=== PATIENT | female | born 1975 | race American Indian/Alaskan Native ===

== ENCOUNTER 2017-07-13 17:28 | Inpatient (IN) | payer MEDICAID, OTHER ==
[~2017-07-13 17:28] MED LIST: Fluarix Quad 2017-2018(36 MOS+ IM ONE
[2017-07-13] MEDS ORDERED: BRETHINE IVP PRN (18:20)
[2017-07-13] MEDS ORDERED: ZOFRAN IV PRN (18:20)
[2017-07-13] MEDS ORDERED: XYLOCAINE 2% INFILTRATI ONE (18:20)
[2017-07-13] MEDS ORDERED: NARCAN 0.4 MG/1 ML IV PRN (18:20)
[2017-07-13] MEDS ORDERED: PHENERGAN PO PRN (18:20)
[2017-07-13] MEDS ORDERED: ePHEDrine SULFATE IV PRN (18:20)
[2017-07-13] MEDS ORDERED: BRETHINE SUB-Q PRN (18:20)
[2017-07-13] MEDS ORDERED: PITOCin/NS 20 UNIT/1000ML DRIP 20 UNITS/1,000 ML BAG IV SCH (19:00)
[2017-07-13] MEDS ORDERED: CYTOTEC VAGINAL SCH (19:00)
[2017-07-13] MEDS ORDERED: PITOCin/NS 30 UNIT/500ML 30 UNITS/500 ML BAG IV SCH (19:00)
[2017-07-13 21:04] LABS: Hematocrit 35.6 % (30.3-42.9); Mean Corpuscular HGB Conc 34 % (30-34); Mean Corpuscular Hemoglobin 30 pg (28-32); Mean Corpuscular Volume 88 fl (79-97); Platelet Count 303 K/mm3 (140-440); Red Blood Count 4.05 M/mm3 (3.65-5.03); White Blood Count 12.5 K/mm3 (4.5-11.0)
--- NOTE | 2017-07-13 21:18 | Ultrasound Report ---
FINAL REPORT PROCEDURE: US OB LIMITED TECHNIQUE: Real-time limited sonographic examination was performed for evaluation of size, position, heartbeat, fluid volume for each fetus with image documentation (1 or more fetuses). CPT 32543 HISTORY: viablity COMPARISON: 07/12/2017 FINDINGS: There is a single intrauterine gestation, in cephalic presentation. There is oligohydramnios. No cardiac activity is detected. IMPRESSION: No cardiac activity is detected
[2017-07-13 21:29] LABS: Uric Acid 7.8 mg/dL (3.5-7.6)
[2017-07-13] MEDS: LACTATED RINGERS 1,000 ML IV SCH (21:29)
[2017-07-13] MEDS: CYTOTEC VG SCH (21:32)
[2017-07-13] MEDS ORDERED: MINERAL OIL PO PRN (22:00)
[2017-07-14] MEDS: STADOL IV PRN ×2 (00:31→13:36)
[2017-07-14] MEDS: LACTATED RINGERS 1,000 ML IV SCH (02:44)
[2017-07-14] MEDS: CYTOTEC VG SCH (02:45)
[2017-07-14 03:21] LABS: Bilirubin,Urine NEG (Negative); Blood,Urine SM (Negative); Ketones,Urine NEG (Negative); Leukocyte Esterase,Urine NEG (Negative); Mucus,Urine FEW /HPF; Nitrite,Urine NEG (Negative); Protein,Urine >500 mg/dL (Negative); Urobilinogen,Urine < 2.0 mg/dL (<2.0)
[2017-07-14] MEDS: SUBLIMAZE IV PRN ×3 (05:14→12:50)
[2017-07-14] MEDS ORDERED: CYTOTEC ONE (07:32)
[2017-07-14] MEDS ORDERED: CYTOTEC PR ONE (08:00)
[2017-07-14] MEDS ORDERED: APRESOLINE IV PRN ×2 (11:45→12:34)
--- NOTE | 2017-07-14 12:40 | Progress Note ---
Assessment and Plan - Patient Problems (1) demise Current Visit: Yes Status: Acute Plan to address problem: continue with induction (2) Chronic hypertension affecting Current Visit: Yes Status: Acute Plan to address problem: treat chronic hypertension with IV anti-hypertensive therapy (3) Chronic renal insufficiency Current Visit: Yes Status: Acute Qualifiers: Chronic kidney disease stage: C Subjective - Subjective Date of service: 07/14/17 Principal diagnosis: IUFD; chronic renal insufficiency; poorly controlled hypertension Interval history: 41y/o @ 24+3 weeks being induced for an IUFD. The patient has received cytotec for the induction agent. Blood pressures are elevated. Will administer IV anti-hypertensives. Patient reports: contractions Objective - Vital Signs Vital Signs: Vital Signs - 12hr 07/14/17 07/14/17 07/14/17 01:04 01:11 02:11 Temperature Pulse Rate 75 77 72 Respiratory Rate Blood Pressure 144/82 149/88 164/77 Blood Pressure [Right] 07/14/17 07/14/17 07/14/17 02:55 02:56 05:14 Temperature 99.0 F Pulse Rate 74 74 Respiratory 18 18 Rate Blood Pressure 142/92 Blood Pressure 142/92 [Right] 07/14/17 07/14/17 07/14/17 05:18 05:22 05:44 Temperature 99.2 F Pulse Rate 83 83 Respiratory 20 20 Rate Blood Pressure 157/75 Blood Pressure 157/75 [Right] 07/14/17 07/14/17 07/14/17 10:33 10:58 11:36 Temperature Pulse Rate 95 H 88 93 H Respiratory Rate Blood Pressure 173/92 166/88 182/111 Blood Pressure [Right] 07/14/17 07/14/17 07/14/17 12:02 12:24 12:30 Temperature Pulse Rate 95 H 102 H 106 H Respiratory Rate Blood Pressure 182/111 190/99 189/94 Blood Pressure 190/99 [Right] - Labs Labs: Abnormal Labs 07/13/17 07/13/17 Unknown Unknown WBC 12.5 H RDW 16.0 H Creatinine 1.7 H Uric Acid 7.8 H Lactate Dehydrogenase 233 H Laboratory Results - last 24 hr 07/13/17 07/13/17 07/13/17 20:10 Unknown Unknown WBC 12.5 H RBC 4.05 Hgb 12.0 Hct 35.6 MCV 88 MCH 30 MCHC 34 RDW 16.0 H Plt Count 303 Creatinine 1.7 H Estimated GFR 40 Uric Acid 7.8 H AST 22 ALT 20 Lactate Dehydrogenase 233 H Urine Color Urine Turbidity Urine pH Ur Specific Industry Urine Protein Urine Glucose (UA) Urine Ketones Urine Blood Urine Nitrite Urine Bilirubin Urine Urobilinogen Ur Leukocyte Esterase Urine WBC (Auto) Urine RBC (Auto) U Epithel Cells (Auto) Urine Mucus Urine Yeast (Budding) Blood Type O POSITIVE Antibody Screen Negative 07/14/17 02:54 WBC RBC Hgb Hct MCV MCH MCHC RDW Plt Count Creatinine Estimated GFR Uric Acid AST ALT Lactate Dehydrogenase Urine Color Yellow Urine Turbidity Clear Urine pH 6.0 Ur Specific Industry 1.009 Urine Protein >500 Urine Glucose (UA) Neg Urine Ketones Neg Urine Blood Sm Urine Nitrite Neg Urine Bilirubin Neg Urine Urobilinogen < 2.0 Ur Leukocyte Esterase Neg Urine WBC (Auto) 1.0 Urine RBC (Auto) 4.0 U Epithel Cells (Auto) < 1.0 Urine Mucus Few Urine Yeast (Budding) Few Blood Type Antibody Screen
[2017-07-14] MEDS ORDERED: NORMODYNE IV PRN (12:47)
[2017-07-14] MEDS ORDERED: NORMODYNE IV ONE (13:00)
--- NOTE | 2017-07-14 15:04 | Procedure Note ---
OB Delivery Note - Delivery Date of Delivery: 07/14/17 Surgeon: KIERSTEN CUEVAS - Vaginal Delivery presentation: vertex Intrapartum events: other(please specify) (intrauterine demise) Delivery induction: misoprostol Delivery augmentation: pitocin Route of delivery: Delivery placenta: spontaneous Delivery cord: 3 umbilical vessels Anesthesia: none Delivery comments: After dilation of the cervical os, exam revealed the head delivered past the cervix. The patient pushed to deliver a non-viable female in vertex presentation. The cord was clamped and cut and the infant placed on the warmer. Despite third stage of labor being prolonged, the placenta delivered spontaneously intact. No lacerations. EBL 100ml. weight of 1.02lbs - A at 1 minute: 0 (weight 1.02lbs) at 5 minutes: 0 Infant Gender: Female
[2017-07-14] MEDS ORDERED: BENADRYL PO PRN (16:19)
[2017-07-14] MEDS ORDERED: PHENERGAN PR PRN (16:19)
[2017-07-14] MEDS ORDERED: TUCKS PAD TP PRN (16:19)
[2017-07-14] MEDS ORDERED: TYLENOL PO PRN (16:19)
[2017-07-14] MEDS ORDERED: MILK OF MAGNESIA PO PRN (16:19)
[2017-07-14] MEDS ORDERED: NORCO 5/325 PO PRN (16:19)
[2017-07-14] MEDS ORDERED: DULCOLAX PR PRN (16:19)
[2017-07-14] MEDS ORDERED: ZOFRAN IV PRN (16:19)
[2017-07-14] MEDS ORDERED: LANSINOH TP PRN (16:19)
[2017-07-14] MEDS ORDERED: PHENERGAN PO PRN (16:19)
[2017-07-14] MEDS ORDERED: SODIUM CHLORIDE FLUSH SYRINGE 10 ML IV NR (17:00)
[2017-07-14] MEDS ORDERED: MOTRIN PO SCH (17:00)
[2017-07-14] MEDS: ALDOMET PO SCH (21:38)
[2017-07-14] MEDS ORDERED: AMBIEN PO PRN (21:55)
[2017-07-14] MEDS ORDERED: NORMODYNE PO SCH (22:00)
[2017-07-15 07:16] LABS: Hematocrit 38.2 % (30.3-42.9); Hemoglobin 12.8 gm/dl (10.1-14.3); Mean Corpuscular HGB Conc 33 % (30-34); Mean Corpuscular Hemoglobin 29 pg (28-32); Mean Corpuscular Volume 87 fl (79-97); Platelet Count 334 K/mm3 (140-440); Red Blood Count 4.41 M/mm3 (3.65-5.03); Red Cell Distribution Width 16.1 % (13.2-15.2); White Blood Count 10.6 K/mm3 (4.5-11.0)
[2017-07-15 07:28] LABS: Albumin 2.4 g/dL (3.9-5); Albumin/Globulin Ratio 0.6 %; Bilirubin,Total 0.5 mg/dL (0.1-1.2); Calcium 8.4 mg/dL (8.4-10.2); Chloride 101.6 mmol/L (98-107); Potassium 4.2 mmol/L (3.6-5.0); Total Protein 6.6 g/dL (6.3-8.2); Uric Acid 7.7 mg/dL (3.5-7.6)
--- NOTE | 2017-07-15 08:29 | Discharge Summary ---
Providers - Providers Date of Admission: 07/13/17 17:28 Date of discharge: 07/15/17 Attending physician: RYLIE HERNÁNDEZ MD Primary care physician: RYLIE HERNÁNDEZ MD Hospitalization Reason for admission: other (IUP at 24 weeks demise) Delivery: Episiotomy: none Laceration: none Other procedures: none complications: none Discharge diagnosis: intrapartum demise baby: female Condition at discharge: Stable Disposition: [id number] TO HOME OR SELFCARE Plan - Discharge Medications Prescriptions: Zolpidem [Ambien] 10 mg PO QHS PRN #30 tablet PRN Reason: Insomnia - Provider Discharge Summary Activity: routine, no sex for 6 weeks, no strenuous exercise Diet: routine Instructions: other (Continue BP medications as ordered) Additional instructions: [] Smoking cessation referral if applicable(refer to patient education folder for contact #) [] Refer to [facility] Book[facility] Call your doctor immediately for: * Fever > 100.5 * Heavy vaginal bleeding ( >1 pad per hour) * Severe persistent headache * Shortness of breath * Reddened, hot, painful area to leg or breast * Drainage or odor from incision. * Keep incision clean and dry at all times and follow doctor's instructions regarding bathing/showering - Follow up plan Follow up: RYLIE HERNÁNDEZ MD [Primary Care Provider] - Forms: Work/School Excuse Out Patient
--- NOTE | 2017-07-15 08:35 | Progress Note ---
Assessment and Plan O: BP: 123-136/70 A: Day 1 s/p 24 week demise delivery CHTN-controlled P: D/C home Continue BP meds Subjective - Subjective Date of service: 07/15/17 Principal diagnosis: IUFD; chronic renal insufficiency; poorly controlled hypertension Patient reports: appetite normal, voiding normally, ambulating normally, other ( grieving ) : other (demise) Objective - Vital Signs Latest vital signs: Vital Signs Temp Pulse Resp BP BP Pulse Ox 07/15/17 07:17 77 98 07/15/17 07:16 98.0 F 76 20 137/86 98 07/15/17 04:30 98.4 F 81 18 123/70 07/15/17 00:45 98.6 F 81 16 106/62 07/14/17 21:38 66 136/71 07/14/17 21:37 66 136/71 07/14/17 19:30 99.2 F 66 16 136/71 07/14/17 18:48 100.3 F H 116 H 20 149/101 07/14/17 17:00 103 H 161/80 07/14/17 16:45 101 H 150/74 07/14/17 16:30 100 H 153/75 07/14/17 16:15 100 H 163/80 07/14/17 16:00 98 H 170/83 07/14/17 15:43 98 H 172/81 07/14/17 12:59 95 H 153/91 07/14/17 12:30 106 H 189/94 07/14/17 12:24 102 H 190/99 190/99 07/14/17 12:02 95 H 182/111 07/14/17 11:36 93 H 182/111 07/14/17 10:58 88 166/88 07/14/17 10:33 95 H 173/92 Intake and Output 07/14/17 07/15/17 07/15/17 22:59 06:59 14:59 Intake Total 300 300 Balance 300 300 Intake: Intake, Free Water 300 300 Other: Estimated Blood Loss 100 - Exam Breasts: Present: deferred Abdomen: Present: normal appearance, soft. Absent: distention, tenderness Uterus: Present: normal, firm, fundal height below umbilicus Extremities: Present: normal - Labs Labs: Abnormal lab results 07/15/17 07/15/17 Range/Units 06:45 06:45 RDW 16.1 H (13.2-15.2) % Creatinine 1.6 H (0.7-1.2) mg/dL Uric Acid 7.7 H (3.5-7.6) mg/dL Albumin 2.4 L (3.9-5) g/dL
[2017-07-15] MEDS ORDERED: NORMODYNE PO SCH ×2 (09:05→10:00)
[2017-07-15] MEDS: ALDOMET PO SCH (10:05)
[2017-07-15 11:47] VITALS: BP 135/92
== END 2017-07-15 16:05 | disposition home or self-care (01) | DRG 774 ==
LOC: LD 17:28 → OB 07-14 18:35
PROVIDERS: ADMIT Obstetrics & Gynecology; ATTEND Obstetrics & Gynecology
PROC: 3E0234Z Introduction of Serum, Toxoid and Vaccine into Muscle, Percutaneous Approach (ICD-10-PCS; 2017-07-13)
PROC: 10E0XZZ Delivery of Products of Conception, External Approach (ICD-10-PCS; principal; 2017-07-14)
PROC: 3E0P7VZ Introduction of Hormone into Female Reproductive, Via Natural or Artificial Opening (ICD-10-PCS; 2017-07-14)
DX: O36.4XX0 Maternal care for intrauterine death, not applicable or unspecified (principal); O10.22 Pre-existing hypertensive chronic kidney disease complicating childbirth; Z3A.24 24 weeks gestation of pregnancy; Z37.1 Single stillbirth; Z23 Encounter for immunization; I12.9 Hypertensive chronic kidney disease with stage 1 through stage 4 chronic kidney disease, or unspecified chronic kidney disease; N18.9 Chronic kidney disease, unspecified
CPT/HCPCS: 36415; 76815; 80053; 81001; 82565; 83615; 84450; 84460; 84550; 85027; 86592; 86850; 86900; 86901; 88305; 90686; J0360; J0595; J2405; J2590; J3010; J7120